=== PATIENT | male | born 1980 | race Caucasian/White ===

== ENCOUNTER 2024-12-21 14:47 | Inpatient (IN) | payer OTHER ==
[~2024-12-21] VITALS: Ht 177.8 cm; Wt 65.9 kg
[2024-12-21] MEDS: SODIUM CHLORIDE 0.9% 1,000 ML IV ONE (15:30)
[2024-12-21] MEDS: INSULIN REGULAR, HUMAN 100 UNITS/ML IVP ONE (15:32)
[2024-12-21 15:51] LABS: GLUCOMETER DEV NAME(LOC) ERT.7; GLUCOSE,POINT OF CARE 407 MG/DL (70-110)
[2024-12-21 15:58] LABS: PLATELET COUNT (AUTO) 381 K/uL (150-450); RED BLOOD CELL COUNT(AUTO) 4.91 MIL/uL (4.50-5.90); RED CELL DISTRIBUTION WIDTH 13.3 % (11.5-14.5); WHITE BLOOD COUNT (AUTO) 5.1 K/uL (4.5-11.0)
[2024-12-21 16:07] LABS: ACETONE,BLOOD NEGATIVE (NEGATIVE)
[2024-12-21 16:11] LABS: CALCIUM, TOTAL 9.0 mg/dL (8.8-10.5); CREATININE 0.75 mg/dL (0.60-1.30); GLOMERULAR FILTR. RATE CALC > 60 mL/min (>60); GLUCOSE,RANDOM 374 mg/dL (70-110); SODIUM SERUM 133 mmol/L (136-145); UREA NITROGEN, BLOOD 9 mg/dL (7-18)
[2024-12-21 16:16] LABS: ASPARTATE AMINOTRANSFERASE 9 U/L (15-37); TOTAL PROTEIN, SERUM 7.1 g/dL (6.4-8.2)
[2024-12-21 17:26] LABS: GLUCOMETER DEV NAME(LOC) ERT.7; GLUCOSE,POINT OF CARE 271 MG/DL (70-110)
[2024-12-21] MEDS: *CLINICAL-LEVOFLOXACIN IVPB DOSING CLINICAL ONE (17:57)
[2024-12-21] MEDS ORDERED: 0.9% SODIUM CHLORIDE 10 ML SYRINGE IVP ONE (18:07)
[2024-12-21] MEDS ORDERED: SODIUM CHLORIDE 0.9% 100 ML ONE (18:07)
[2024-12-21] MEDS ORDERED: IOHEXOL 350 MG/ML 100 ML VIAL ONE (18:07)
[2024-12-21] MEDS: LEVOFLOXACIN 500 MG/D5% WATER 100 ML IV ONE (18:45)
[2024-12-21] MEDS ORDERED: BISACODYL 10 MG RECTAL RECTAL SUPPOSITORY PR PRN (20:45)
[2024-12-21] MEDS ORDERED: ACETAMINOPHEN 325 MG TABLET PO PRN (20:45)
[2024-12-21] MEDS ORDERED: MAGNESIUM HYDROXIDE SUSPENSION 30 ML UDCUP PO PRN (20:45)
[2024-12-21] MEDS ORDERED: ONDANSETRON HCL 4 MG/2 ML VIAL IVP PRN (20:45)
[2024-12-21] MEDS: DOCUSATE SODIUM 100 MG CAPSULE PO SCH (21:00)
[2024-12-21] MEDS: ZOLPIDEM TARTRATE 5 MG TABLET PO PRN (21:13)
[2024-12-22] MEDS: HEPARIN SODIUM,PORCINE 5,000 UNITS/ML VIAL SQ SCH
[2024-12-22 00:19] VITALS: BP 119/84; PULSE 102; RESP 19; TEMP 98.4; O2SAT 98
[2024-12-22 03:42] VITALS: BP 115/74; PULSE 98; RESP 19; TEMP 98.8; O2SAT 98
[2024-12-22] MEDS ORDERED: DEXTROSE 50%-WATER 25 GM/50 ML SYRINGE IVP PRN (06:00)
[2024-12-22] MEDS: INSULIN LISPRO 100 UNITS/ML SQ PRN (06:00)
[2024-12-22] MEDS: PANTOPRAZOLE SODIUM 40 MG DR TABLET PO SCH (08:14)
[2024-12-22 08:22] VITALS: BP 115/83; PULSE 95; RESP 18; TEMP 98.6; O2SAT 100
[2024-12-22 11:01] LABS: GLUCOMETER DEV NAME(LOC) 6S.2; GLUCOSE,POINT OF CARE 421 MG/DL (70-110)
[2024-12-22 11:31] LABS: APPEARANCE,URINE CLEAR (CLEAR); GLUCOSE, URINE (UA) >=1000 mg/dL (NEGATIVE); LEUKOCYTE ESTERASE ,URINE NEGATIVE (NEGATIVE); NITRATE,URINE NEGATIVE (NEGATIVE); OCCULT BLOOD,URINE NEGATIVE (NEGATIVE); PH,URINE DRUG SCREEN 6.5 (5.0-8.0); SPECIFIC GRAVITIY, URINE 1.029 (1.003-1.030)
[2024-12-22 11:43] LABS: AMPHET/METH SCREEN,URINE NEGATIVE (NEGATIVE); BARBITURATE SCREEN, URINE NEGATIVE (NEGATIVE); CANNABINOID SCREEN,URINE NEGATIVE (NEGATIVE); COCAINE SCREEN,URINE NEGATIVE (NEGATIVE); METHADONE SCREEN, URINE NEGATIVE (NEGATIVE)
[2024-12-22 11:45] LABS: ALCOHOL, URINE DRUG SCREEN NEGATIVE (NEGATIVE)
[2024-12-22 11:57] LABS: MTB PCR w/Rif. Resistance-SPUT NOT DETECTED (Not Detectd)
[2024-12-22 14:15] LABS: GLUCOMETER DEV NAME(LOC) 6N.2C; GLUCOSE,POINT OF CARE 333 MG/DL (70-110)
[2024-12-22 14:35] LABS: MTB-RIFAMPIN RESISTANCE NOT DETECTED (Not detectd)
[2024-12-22 15:10] LABS: MTB PCR w/Rif. Resistance-SPUT DETECTED (Not Detectd)
[2024-12-22 19:31] VITALS: BP 122/89; PULSE 90; RESP 18; TEMP 98.7; O2SAT 99
[2024-12-22] MEDS ORDERED: SODIUM CHLORIDE 3% 15 ML NEB SOLUTION NEB ONE (19:31)
[2024-12-22 19:40] VITALS: PULSE 99; RESP 20; O2SAT 96
[2024-12-22 20:26] LABS: GLUCOMETER DEV NAME(LOC) 6S.1D; GLUCOSE,POINT OF CARE 308 MG/DL (70-110)
[2024-12-23 02:46] LABS: GLUCOMETER DEV NAME(LOC) 6S.2; GLUCOSE,POINT OF CARE 348 MG/DL (70-110)
[2024-12-23 04:27] VITALS: BP 115/71; PULSE 97; RESP 18; TEMP 98; O2SAT 100
[2024-12-23 08:00] VITALS: BP 92/70; PULSE 107; RESP 18; TEMP 98.4; O2SAT 100
[2024-12-23 11:45] LABS: GLUCOMETER DEV NAME(LOC) 6S.1D; GLUCOSE,POINT OF CARE 380 MG/DL (70-110)
[2024-12-23] MEDS: *CLINICAL-LEVOFLOXACIN IVPB DOSING CLINICAL ONE (13:51)
[2024-12-23] MEDS ORDERED: SODIUM CHLORIDE 0.9% 500 ML IV ONE (15:22)
[2024-12-23] MEDS: LEVOFLOXACIN 750 MG/D5% WATER 150 ML IV SCH (15:24)
[2024-12-23 16:00] LABS: GLUCOMETER DEV NAME(LOC) 6S.2; GLUCOSE,POINT OF CARE 295 MG/DL (70-110)
[2024-12-23] MEDS: PYRAZINAMIDE 500 MG TABLET PO SCH (18:04)
[2024-12-23] MEDS: ETHAMBUTOL HCL 400 MG TABLET PO SCH (18:04)
[2024-12-23] MEDS: ISONIAZID 300 MG TABLET PO SCH (18:05)
[2024-12-23] MEDS: PYRIDOXINE HCL 50 MG TABLET PO SCH (18:05)
[2024-12-23 19:44] VITALS: BP 107/77; PULSE 89; RESP 18; TEMP 98.2; O2SAT 98
[2024-12-23 20:26] LABS: GLUCOMETER DEV NAME(LOC) 6S.2; GLUCOSE,POINT OF CARE 317 MG/DL (70-110)
[2024-12-24 04:20] VITALS: BP 101/82; PULSE 88; RESP 18; TEMP 98.1; O2SAT 100
[2024-12-24 05:31] LABS: GLUCOMETER DEV NAME(LOC) 6N.2C; GLUCOSE,POINT OF CARE 339 MG/DL (70-110)
[2024-12-24 08:00] VITALS: BP 114/80; PULSE 95; RESP 20; TEMP 98.2; O2SAT 99
[2024-12-24 11:40] LABS: GLUCOMETER DEV NAME(LOC) 4E.2; GLUCOSE,POINT OF CARE 288 MG/DL (70-110)
[2024-12-24] MEDS: INSULIN LISPRO 100 UNITS/ML SQ ONE (12:26)
[2024-12-24] MEDS ORDERED: SODIUM CHLORIDE 0.9% 500 ML IV ONE (14:24)
[2024-12-24 16:00] VITALS: BP 113/80; PULSE 94; RESP 20; TEMP 98.2; O2SAT 100
[2024-12-24 17:31] LABS: GLUCOMETER DEV NAME(LOC) 4E.2; GLUCOSE,POINT OF CARE 254 MG/DL (70-110)
[2024-12-24 20:00] VITALS: BP 110/73; PULSE 105; RESP 18; TEMP 98.6; O2SAT 99
[2024-12-24 21:06] LABS: GLUCOMETER DEV NAME(LOC) 6N.1B; GLUCOSE,POINT OF CARE 427 MG/DL (70-110)
[2024-12-24 21:06] LABS: GLUCOMETER DEV NAME(LOC) 6N.1B; GLUCOSE,POINT OF CARE 292 MG/DL (70-110)
[2024-12-25 05:33] VITALS: BP 108/76; PULSE 97; RESP 18; TEMP 98.6; O2SAT 99
[2024-12-25 06:41] LABS: GLUCOMETER DEV NAME(LOC) 6S.1D; GLUCOSE,POINT OF CARE 346 MG/DL (70-110)
[2024-12-25 07:59] VITALS: BP 101/73; PULSE 92; RESP 20; TEMP 98.1; O2SAT 100
[2024-12-25 15:43] VITALS: BP 141/87; PULSE 74; RESP 20; TEMP 97.7; O2SAT 94
[2024-12-25 18:00] LABS: GLUCOMETER DEV NAME(LOC) 4E.2; GLUCOSE,POINT OF CARE 326 MG/DL (70-110)
[2024-12-25 20:23] VITALS: BP 109/69; PULSE 98; RESP 18; TEMP 98.8; O2SAT 98
[2024-12-25] MEDS: DOXYCYCLINE HYCLATE 100 MG TABLET PO SCH (20:39)
[2024-12-26 05:40] VITALS: BP 106/72; PULSE 94; RESP 18; TEMP 98.6; O2SAT 97
[2024-12-26 06:15] LABS: GLUCOMETER DEV NAME(LOC) 4E.2; GLUCOSE,POINT OF CARE 248 MG/DL (70-110)
[2024-12-26 06:16] LABS: GLUCOMETER DEV NAME(LOC) 4E.2; GLUCOSE,POINT OF CARE 283 MG/DL (70-110)
[2024-12-26 07:06] LABS: PLATELET COUNT (AUTO) 373 K/uL (150-450); RED BLOOD CELL COUNT(AUTO) 4.90 MIL/uL (4.50-5.90); RED CELL DISTRIBUTION WIDTH 13.4 % (11.5-14.5); WHITE BLOOD COUNT (AUTO) 4.6 K/uL (4.5-11.0)
[2024-12-26 07:12] LABS: ASPARTATE AMINOTRANSFERASE 8 U/L (15-37); CALCIUM, TOTAL 8.6 mg/dL (8.8-10.5); CREATININE 0.83 mg/dL (0.60-1.30); GLOMERULAR FILTR. RATE CALC > 60 mL/min (>60); GLUCOSE,RANDOM 269 mg/dL (70-110); SODIUM SERUM 131 mmol/L (136-145); TOTAL PROTEIN, SERUM 6.7 g/dL (6.4-8.2); UREA NITROGEN, BLOOD 13 mg/dL (7-18)
[2024-12-26 07:42] VITALS: BP 100/78; PULSE 102; RESP 20; TEMP 98.4; O2SAT 96
[2024-12-26 14:46] LABS: GLUCOMETER DEV NAME(LOC) 4E.2; GLUCOSE,POINT OF CARE 266 MG/DL (70-110)
[2024-12-26 17:30] LABS: GLUCOMETER DEV NAME(LOC) 4E.2; GLUCOSE,POINT OF CARE 231 MG/DL (70-110)
[2024-12-26 20:15] VITALS: BP 105/73; PULSE 85; RESP 18; TEMP 97.9; O2SAT 100
[2024-12-26 20:20] LABS: GLUCOMETER DEV NAME(LOC) 6S.1D; GLUCOSE,POINT OF CARE 280 MG/DL (70-110)
[2024-12-26 22:25] LABS: GLUCOMETER DEV NAME(LOC) 6S.1D; GLUCOSE,POINT OF CARE 265 MG/DL (70-110)
[2024-12-27 04:10] VITALS: BP 104/72; PULSE 91; RESP 18; TEMP 98; O2SAT 97
[2024-12-27 08:00] VITALS: BP 107/74; PULSE 83; RESP 20; TEMP 98.4; O2SAT 99
[2024-12-27 16:00] VITALS: BP 105/69; PULSE 87; RESP 20; TEMP 98.2; O2SAT 97
[2024-12-27 20:01] LABS: GLUCOMETER DEV NAME(LOC) 6S.1D; GLUCOSE,POINT OF CARE 305 MG/DL (70-110)
[2024-12-27 20:03] VITALS: BP 108/74; PULSE 85; RESP 18; TEMP 98.1; O2SAT 95
[2024-12-27 20:07] LABS: QUANTIFERON+, Nil Value 0.09 IU/mL; QUANTIFERON+,Mitogen Value >10.00 IU/mL; QUANTIFERON+,TB1 Antigen Value 1.38 IU/mL; QUANTIFERON+,TB2 Antigen Value 1.47 IU/mL; QUANTIFERON, TB GOLD PLUS Positive (Negative)
[2024-12-28 03:39] VITALS: BP 105/73; PULSE 83; RESP 18; TEMP 98.2; O2SAT 98
[2024-12-28 04:40] LABS: GLUCOMETER DEV NAME(LOC) 6S.1D; GLUCOSE,POINT OF CARE 257 MG/DL (70-110)
[2024-12-28 06:26] LABS: GLUCOMETER DEV NAME(LOC) 6S.1D; GLUCOSE,POINT OF CARE 252 MG/DL (70-110)
[2024-12-28 08:11] VITALS: BP 113/80; PULSE 89; RESP 18; TEMP 97.7; O2SAT 99
[2024-12-28] MEDS ORDERED: DEXTROSE 50%-WATER 25 GM/50 ML SYRINGE IVP PRN (08:30)
[2024-12-28] MEDS: INSULIN GLARGINE,HUM.REC.ANLOG 100 UNITS/ML SQ SCH (08:52)
[2024-12-28 11:07] LABS: PLATELET COUNT (AUTO) 340 K/uL (150-450); RED BLOOD CELL COUNT(AUTO) 4.72 MIL/uL (4.50-5.90); RED CELL DISTRIBUTION WIDTH 13.6 % (11.5-14.5); WHITE BLOOD COUNT (AUTO) 4.0 K/uL (4.5-11.0)
[2024-12-28 11:12] LABS: CALCIUM, TOTAL 8.3 mg/dL (8.8-10.5); CREATININE 0.77 mg/dL (0.60-1.30); GLOMERULAR FILTR. RATE CALC > 60 mL/min (>60); GLUCOSE,RANDOM 270 mg/dL (70-110); SODIUM SERUM 131 mmol/L (136-145); UREA NITROGEN, BLOOD 12 mg/dL (7-18)
[2024-12-28] MEDS: INSULIN LISPRO 100 UNITS/ML SQ PRN (12:08)
[2024-12-28] MEDS ORDERED: MAGNESIUM SULFATE 4 GM/WATER 100 ML IV PRN (13:15)
[2024-12-28] MEDS ORDERED: MAGNESIUM SULFATE 2 GM/WATER 50 ML IV PRN (13:15)
[2024-12-28] MEDS: MAGNESIUM OXIDE 400 MG TABLET PO PRN (15:02)
[2024-12-28 17:50] LABS: GLUCOMETER DEV NAME(LOC) 6S.1D; GLUCOSE,POINT OF CARE 269 MG/DL (70-110)
[2024-12-28 17:51] LABS: GLUCOMETER DEV NAME(LOC) 6S.1D; GLUCOSE,POINT OF CARE 260 MG/DL (70-110)
[2024-12-28 19:46] VITALS: BP 109/77; PULSE 84; RESP 18; TEMP 98.3; O2SAT 100
[2024-12-29 04:36] VITALS: BP 106/74; PULSE 78; RESP 18; TEMP 97.9; O2SAT 98
[2024-12-29 07:10] VITALS: BP 102/74; PULSE 91; RESP 18; TEMP 97.7; O2SAT 98
[2024-12-29 11:13] LABS: ASPARTATE AMINOTRANSFERASE 18.0 U/L (15-37); TOTAL PROTEIN, SERUM 6.5 g/dL (6.4-8.2)
[2024-12-29 15:00] VITALS: BP 109/80; PULSE 84; RESP 18; TEMP 98.4; O2SAT 100
[2024-12-29 15:31] LABS: GLUCOMETER DEV NAME(LOC) 6N.1B; GLUCOSE,POINT OF CARE 221 MG/DL (70-110)
[2024-12-29 17:06] LABS: GLUCOMETER DEV NAME(LOC) 6S.1D; GLUCOSE,POINT OF CARE 183 MG/DL (70-110)
[2024-12-29 19:25] VITALS: BP 121/81; PULSE 77; RESP 18; TEMP 98.2; O2SAT 98
[2024-12-29] MEDS: INSULIN GLARGINE,HUM.REC.ANLOG 100 UNITS/ML SQ SCH (21:03)
[2024-12-30 00:46] LABS: GLUCOMETER DEV NAME(LOC) 6S.1D; GLUCOSE,POINT OF CARE 293 MG/DL (70-110)
[2024-12-30 05:34] VITALS: BP 103/73; PULSE 82; RESP 18; TEMP 98.1; O2SAT 99
[2024-12-30 07:10] LABS: GLUCOMETER DEV NAME(LOC) 6N.1B; GLUCOSE,POINT OF CARE 230 MG/DL (70-110)
[2024-12-30 08:00] VITALS: BP 100/77; PULSE 94; RESP 20; TEMP 98.4; O2SAT 99
[2024-12-30 12:41] LABS: GLUCOMETER DEV NAME(LOC) 6S.1D; GLUCOSE,POINT OF CARE 401 MG/DL (70-110)
[2024-12-30 12:41] LABS: GLUCOMETER DEV NAME(LOC) 6S.1D; GLUCOSE,POINT OF CARE 280 MG/DL (70-110)
[2024-12-30] MEDS ORDERED: ISON300T89 PO (14:30)
[2024-12-30] MEDS ORDERED: RIFA300C62 PO (14:30)
[2024-12-30] MEDS ORDERED: ETHA400T25 PO ×2 (14:30→14:37)
[2024-12-30] MEDS ORDERED: PYRA500T34 PO (14:30)
[2024-12-30] MEDS ORDERED: PYRI-9 PO ×2 (14:30→14:39)
[2024-12-30] MEDS ORDERED: INSLAN SQ ×2 (14:30→14:38)
[2024-12-30] MEDS ORDERED: ISON300T90 PO (14:38)
[2024-12-30] MEDS ORDERED: PYRA500T33 PO (14:39)
[2024-12-30] MEDS ORDERED: RIFA300C63 PO (14:40)
[2024-12-30 18:20] LABS: GLUCOMETER DEV NAME(LOC) 6S.1D; GLUCOSE,POINT OF CARE 139 MG/DL (70-110)
== END 2024-12-30 19:50 | DRG 178 ==
LOC: EMS 14:47 → EDBEDREQ 16:46 → EDH 17:10 → 6N 12-22 00:16 → 4E 12-23 23:32
PROVIDERS: ADMIT Internal Medicine; ATTEND Internal Medicine
DX: A15.0 Tuberculosis of lung (principal); E44.0 Moderate protein-calorie malnutrition; J18.9 Pneumonia, unspecified organism; E11.65 Type 2 diabetes mellitus with hyperglycemia; K21.9 Gastro-esophageal reflux disease without esophagitis; E11.40 Type 2 diabetes mellitus with diabetic neuropathy, unspecified; E78.00 Pure hypercholesterolemia, unspecified; Z88.0 Allergy status to penicillin; Z88.6 Allergy status to analgesic agent; Z68.20 Body mass index [BMI] 20.0-20.9, adult
CPT/HCPCS: 71046; 71260; 80048; 80053; 80076; 80307; 81001; 82009; 82040; 82948; 82962; 83036; 83735; 85025; 86480; 87015; 87040; 87150; 87206; 87389; 87556; 93005; 94640; 99285; G0378; J1200; J1644; J1815; J1956; J7030; J7040; J7050; 36415-L1; 36415-TC